=== PATIENT | female | born 1955 | race Caucasian/White ===

== ENCOUNTER 2016-08-28 12:42 | Emergency (ER) ==
--- NOTE | 2016-08-28 13:08 | EKG Report ---
Test Performed on : 08/28/2016 12:58:26 PM Test Reason : CP Blood Pressure : / mmHG Vent. Rate : 096 BPM Atrial Rate : 096 BPM P-R Int : 156 ms QRS Dur : 090 ms QT Int : 372 ms P-R-T Axes : 070 -13 086 degrees QTc Int : 469 ms Normal sinus rhythm. Low voltage QRS Borderline ECG When compared with ECG of 19-DEC-2015 03:12, QT has lengthened Unconfirmed Result
[2016-08-28] MEDS ORDERED: NS 1,000 ML IV ONE (13:45)
--- NOTE | 2016-08-28 14:05 | PROVIDER DOCUMENTATION ---
HPI-Cardiac General - General Source: patient - History of Present Illness-Cardiac Quality of Pain: reports: none Severity in ED: mild Onset/Duration: 3 days ago Timing: still present Context/Activities at Onset: reports: none Modifying Factors: improves with: nothing History of arrythmia: reports: none Recent use of:: reports: no stimulants Nitro Today/Relief: reports: no nitro taken today Aspirin Treatment Today: reports: no aspirin today Prior Chest Pain/Cardiac Workup: reports: no prior chest pain Associated Symptoms: reports: dizziness, shortness of breath Similar Symptoms Previously?: No Recently Seen Here or By Another Healthcare Provider: No <Shari Huynh - Last Filed: 08/28/16 18:06> <Leo De Leon - Last Filed: 08/28/16 19:46> - General Chief Complaint: Palpitations Stated Complaint: PALPITATIONS Time Seen by Provider: 08/28/16 13:04 Allergies/Adverse Reactions: Patient Allergies Allergy/AdvReac Type Severity Reaction Status Date / Time No Known Allergies Allergy Verified 08/28/16 12:47 Home Medications: Home Medication List Medication Instructions Recorded Confirmed Last Taken Type Clonazepam [Klonopin] 0.5 mg PO BID 12/19/15 08/28/16 12/18/15 History Fexofenadine [Lory] 180 mg PO DAILY 12/19/15 08/28/16 12/18/15 History Hydroxyzine 25 mg PO HS 12/19/15 08/28/16 12/18/15 History Levothyroxine Sodium [Levothroid] 175 mcg PO DAILY 12/19/15 08/28/16 12/18/15 History Losartan Potassium 100 mg PO DAILY 12/19/15 08/28/16 12/19/15 History Meloxicam 7.5 mg PO DAILY 12/19/15 08/28/16 12/18/15 History Metformin [Glucophage] 500 mg PO WBREAKFAST 12/19/15 08/28/16 12/18/15 History Omeprazole 40 mg PO DAILY 12/19/15 08/28/16 12/18/15 History Sertraline HCl 100 mg PO DAILY 12/19/15 08/28/16 12/18/15 History Trazodone [Desyrel] 50 mg PO HS PRN PRN 12/19/15 08/28/1616 History - History of Present Illness-Cardiac Nature of Presenting Problem: Pt is a 61 yof who came to the ED with a cc of palpitations. Pt reports she has been having palpitations since Sunday, and her heart rate got up to 119. Pt reports she has trouble sleeping she says sometimes she only gets 3 hours of sleep a night. Pt reports she gets lightheaded and dizzy from the palpitations and has a loss of balance. (Shari Huynh) Review of Systems - Adult - REVIEW OF SYSTEMS - ADULT Constitutional: reports: fatique. denies: chills, fever Eyes: denies: blurred vision, double vision Ears, Nose, Mouth & Throat: reports: no symptoms reported Cardiovascular: reports: palpitations. denies: poor circulation, syncope Respiratory: reports: shortness of breath. denies: cough, hemoptysis Gastrointestinal: reports: no symptoms reported Genitourinary: reports: no symptoms reported Musculoskeletal: reports: no symptoms reported Integumentary: reports: no symptoms reported Neurological: reports: no symptoms reported Psychiatric: reports: no symptoms reported Endocrine: reports: no symptoms reported Hematologic/Lymphatic: reports: no symptoms reported Allergic/Immunologic: reports: no symptoms reported All Other Systems: Reviewed and Negative <Shari Huynh - Last Filed: 08/28/16 18:06> Past History - Adult - PAST MEDICAL HISTORY-ADULT Review of Records: reports: Old Records Reviewed, Nursing Assessment Review Major Childhood Illnesses: reports: denies history Cardiovascular: reports: CAD, HTN, [place] Respiratory: reports: denies history Gastrointestinal: reports: denies history Obstetrical/Gynecological: reports: denies history Genitourinary: reports: denies history Musculoskeletal: reports: arthritis Neurological: reports: denies history Endocrine/Immune: reports: Diabetes Other Conditions: reports: denies history - PRIOR SURGERIES/PROCEDURES Surgical/Procedure History: reports: reviewed, not pertinent - PRIOR HOSPITALIZATIONS Prior Hospitalizations: reports: none - IMMUNIZATION STATUS Childhood Immunizations: See Nurse Assessment Flu Vaccine: See Nurse Assessment - FAMILY HISTORY Family History: reviewed, not pertinent <Shari Huynh - Last Filed: 08/28/16 18:06> Physical Exam-General - PHYSICAL EXAM-ADULT Initial Vital Signs Reviewed: Yes - CONSTITUTIONAL General Appearance: alert, no apparent distress - EYES Eyes: PERRL/EOMI, pink conjunctivae, fundi clear, no AV nicking - HEAD, EARS, NOSE, MOUTH & THROAT HENMT: normocephalic/atraumatic, moist mucous membranes, normal ENT inspection - NECK Neck: non-tender - RESPIRATORY Respiratory: chest non-tender, lungs clear, normal breath sounds, no pleuratic chest pain - CARDIOVASCULAR Cardiovascular: normal peripheral pulses, regular rate, rhythm - GASTROINTESTINAL (ABDOMEN) Abdominal Exam: normal bowel sounds, non tender - LYMPHATIC Lymphatic: no adenopathy - MUSCULOSKELETAL Back Exam: normal inspection, no CVA tenderness Extremity: normal range of motion, non-tender - SKIN Integumentary: normal turgor - NEUROLOGIC Neurologic: grossly normal - PSYCHIATRIC Psych/Mental Status: normal mood/affect, normal thought content, normal thought process, oriented x 3 <Shari Huynh - Last Filed: 08/28/16 18:06> Progress - EKG 1 Time of EKG reading by physician:: 12:58 EKG Read and Signed by:: Taylor Michelle EKG Interpretation (*Must complete 3 of following elements*): Normal Rate: 96 (Low voltage QRS) Rhythm: NSR - CHANGE OF SHIFT REPORT (ED Provider) Report Given and Care Transferred to:: Dr. De Leon Time of Transfer: 18:06 <Shari Huynh - Last Filed: 08/28/16 18:06> <Leo De Leon - Last Filed: 08/28/16 19:46> - PLAN OF CARE/RESULTS Progress/Plan/Lab Results: Vital Signs - 24 hr 08/28/16 12:44 Temperature 98.2 F Pulse Rate 97 H Respiratory 16 Rate Blood Pressure 150/83 O2 Sat by Pulse 95 Oximetry Orders Category Date Time Status Cardiac Monitoring DIRECTED Care 08/28/16 13:45 Active Saline Loc NOW Care 08/28/16 13:45 Active CBC WITH ELECTRONIC DIFF [HEME] Stat Lab 08/28/16 13:45 Uncollected CK PROFILE [SP CHEM] Stat Lab 08/28/16 13:45 Uncollected COMPREHENSIVE METABOLIC PANEL [CHEM] Stat Lab 08/28/16 13:45 Uncollected D-DIMER [CHEM] Stat Lab 08/28/16 13:45 Uncollected MAGNESIUM [CHEM] Stat Lab 08/28/16 13:45 Uncollected PRO B-NATRIURETIC PEPTIDE Stat Lab 08/28/16 13:45 Uncollected PROTIME WITH INR [COAG] Stat Lab 08/28/16 13:45 Uncollected PTT [COAG] Stat Lab 08/28/16 13:45 Uncollected TROPONIN T Stat Lab 08/28/16 13:[address] W/POSS RFLX CULT [URINALYSIS] Stat Lab 08/28/16 13:45 Uncollected 0.9% Sodium Chloride Inj [Ns] 1,000 ml Med 08/28/16 13:45 Active IV 999 mls/hr EKG [EKG] Stat Ther 08/28/16 12:51 Draft (Shari Huynh) Departure <Shari Huynh - Last Filed: 08/28/16 18:06> - Departure Time of Disposition Order: 19:45 Certified Medical Emergency: Emergent <Leo De Leon - Last Filed: 08/28/16 19:46> - Departure DIAGNOSIS: Atypical chest pain Disposition: HOME 01 Condition: Stable Additional Instructions: call my office for [facility] ED Follow Up Instructions: You have been treated by a care provider in the Emergency Department. These instructions are being provided to you so you can have an understanding of how to care for yourself upon discharge. Upon discharge from the Emergency Department, you are responsible for making arrangements for follow-up care by a physician of your choice. Take all prescribed medications as directed. Return to the Emergency Department immediately for any new or worsening symptoms. You may call the Physician Referral phone number at [phone] to obtain a list of Physicians who are taking new patients. Referrals: Leo De Leon MD [Primary Care Provider] - Attestation - Scribe Verification/Attestation Scribe:: Shari Huynh Acting as Scribe for:: Taylor Michelle Scribe documention review:: This chart was documented by a scribe and accurately reflects the service the provider performed and the decisions made by the provider. - Scribe Verification/Attestation #2 Shift Change Time: 18:06 Scribe Name: Nati Dickson Acting as Scribe for:: Leo De Leon <Shari Huynh - Last Filed: 08/28/16 18:06> Physician Attestation
[2016-08-28 17:08] LABS: MANUAL DIFF NEEDED? NO
[2016-08-28 17:11] LABS: BASO% 0.4 % (0.0-0.8); EOS# 0.17 X1000 (0.0-0.7); EOS% 1.7 % (0.0-10.0); HEMATOCRIT 42.7 % (37.0-47.0); IMM GRAN# 0.02 X1000 (0.0-0.04); IMM GRAN% 0.2 % (0.0-0.5); LYMPH# 3.54 X1000 (1.2-3.4); LYMPH% 34.6 % (20.5-51.1); MCH 29.3 PG (27-31); MCHC 32.8 g/dL (33-37); MCV 89.3 FL (81-99); MONO# 0.85 X1000 (0.11-0.59); MONO% 8.3 % (1.7-9.3); MPV 12.5 FL (7.4-10.4); NEUT% 54.8 % (42.2-75.2); PLT 219 X1000 (130-400); RBC 4.78 XMIL (4.2-5.4)
[2016-08-28 17:26] LABS: INR 0.94 (0.86-1.15); PROTIME 12.9 Seconds (12.1-15.5)
[2016-08-28 17:27] LABS: PTT PL 29.7 Seconds (22.6-43.9)
[2016-08-28 17:28] LABS: AGAP 13; ALBUMIN 3.8 g/dL (3.5-5.0); ALKALINE PHOSPHATASE 81 U/L (32-104); BUN 15 mg/dL (8-22); CALCIUM 9.2 mg/dL (8.8-10.2); CHLORIDE 99 mmol/L (98-107); CK PROFILE 47 U/L (24-173); COSMO 275; GOT 29 U/L (10-30); GPT 39 U/L (10-36); MAGNESIUM 1.6 mg/dL (1.5-2.7); POTASSIUM 3.9 mmol/L (3.5-5.1); SODIUM 137 mmol/L (136-145); TCO2 25 mmol/L (25-35); TOTAL PROTEIN 6.3 g/dL (6.3-8.3)
[2016-08-28 19:59] VITALS: BP 158/86
--- NOTE | 2016-08-28 20:37 | Diag Imaging Result Document ---
PROCEDURE NAME: ANGIOGRAM/PULMONARY ARTERIES - 08/28/2016 STUDY: CT chest with intravenous contrast. There is normal opacification of the pulmonary arteries and their proximal main branches. The peripheral arteries are poorly opacified. No cardiomegaly. No pleural effusions. No thoracic aortic aneurysm or dissection. No enlarged mediastinal or hilar lymph nodes. No consolidation. No bronchiectasis. There is a calcified granuloma posteriorly in the left lower lobe. Limited images through the upper abdomen reveal a cholecystectomy as well as a 4.9 cm left renal cyst. There is prominence to the left adrenal gland. IMPRESSION: 1. No pulmonary emboli. 2. No pneumonia. 3. Cholecystectomy. 4. Prominent left adrenal gland. 5. Left renal cyst. A preliminary report was given at 6:36 p.m.
== END 2016-08-28 19:58 | disposition home or self-care (01) ==
LOC: P.ED 12:42
DX: R07.89 Other chest pain (principal); R00.2 Palpitations; R53.83 Other fatigue; R06.02 Shortness of breath; I25.10 Atherosclerotic heart disease of native coronary artery without angina pectoris; I10 Essential (primary) hypertension; I25.2 Old myocardial infarction; M19.90 Unspecified osteoarthritis, unspecified site; E11.9 Type 2 diabetes mellitus without complications; R42 Dizziness and giddiness
CPT/HCPCS: 71275; 80053; 82550; 83735; 83880; 84484; 85025; 85379; 85610; 85730; 86140; 93005; J7030; Q9967